=== PATIENT | male | born 1995 | race African-American/Black ===

== ENCOUNTER 2019-01-22 21:34 | Emergency (ER) | payer MEDICAID, OTHER ==
[~2019-01-22] VITALS: Ht 172.7 cm; Wt 72.3 kg
[2019-01-23] MEDS ORDERED: LIDOCAINE HCL/EPINEPHRINE 1%-EPI 1:100,000 20 ML VIAL INFIL ONE (01:15)
[2019-01-23 03:13] VITALS: BP 138/78
[2019-01-23] MEDS ORDERED: BACITRACIN ZINC OINT UDPKT TOP ONE (03:15)
== END 2019-01-23 03:14 | disposition home or self-care (01) ==
LOC: ER 21:34
DX: S61.512A Laceration without foreign body of left wrist, initial encounter (principal); F12.10 Cannabis abuse, uncomplicated; W25.XXXA Contact with sharp glass, initial encounter; Y93.89 Activity, other specified; Y92.018 Other place in single-family (private) house as the place of occurrence of the external cause
CPT/HCPCS: 73110; 99283; J3490

== ENCOUNTER 2020-05-01 11:00 | Emergency (ER) | payer OTHER ==
[~2020-05-01] VITALS: Ht 170.2 cm; Wt 70.0 kg
[2020-05-01 11:06] VITALS: BP 135/80
[2020-05-01] MEDS ORDERED: LIDOCAINE HCL 1% 20ML VIAL (Pyxis) INJ INFIL ONE (11:30)
[2020-05-01] MEDS ORDERED: CEFTRIAXONE SODIUM 250 MG/VIAL IM ONE (11:30)
[2020-05-01] MEDS ORDERED: AZITHROMYCIN 500 MG TABLET PO ONE (11:30)
[2020-05-01 12:25] LABS: CLARITY URINE CLEAR (CLEAR); COLOR URINE DK YELLOW (YELLOW); KETONES URINE TRACE (NEGATIVE); LEUKOCYTE ESTERASE URINE 1+ (NEGATIVE); NITRITE URINE NEGATIVE (NEGATIVE); OCCULT BLOOD URINE NEGATIVE (NEGATIVE); PROTEIN URINE TRACE (NEGATIVE); SPECIFIC GRAVITY URINE 1.033 (1.005-1.030)
[2020-05-03 04:07] LABS: NEISSERIA GONORRHOEAE NAA Negative (Negative)
== END 2020-05-01 12:03 | disposition left against medical advice (07) ==
LOC: ER 11:00
DX: R36.9 Urethral discharge, unspecified (principal)
CPT/HCPCS: 81003; 87491; 87591; 96372; 99283; J0696; J3490